=== PATIENT | male | born 1950 | race Caucasian/White ===

== ENCOUNTER 2017-03-21 07:35 | Outpatient (CLI) | payer MEDICARE, OTHER ==
[2015-10-17 21:40] VITALS: BP 150/75
--- NOTE | 2017-03-21 16:27 | Diagnostic Imaging Report ---
[facility] [address] [facility].[address] [address] Report Submission Date: March 21, 2017 8:40:29 AM CDT Patient Study Name: MLILER ALCAZAR Date: March 21, 2017 7:44:39 AM CDT Modality Type: CR Gender: M Description: SHOULDER : 46 Institution: [facility] Physician SHERRY LONG Left shoulder-three views CLINICAL HISTORY: Pain for 4 weeks. FINDINGS: Examination left shoulder in multiple views demonstrates degenerative changes in the acromioclavicular and glenohumeral joints. There is no evident fracture and no lytic or blastic lesion. IMPRESSION: Degenerative changes. No fracture. Electronically signed on March 21, 2017 8:40:29 AM CDT by: Javier GRIDER
== END 2017-03-21 07:36 ==
LOC: RAD 07:35
PROVIDERS: ATTEND Orthopaedic Surgery
DX: M25.512 Pain in left shoulder (principal)
CPT/HCPCS: 73030